=== PATIENT | male | born 1985 | race Caucasian/White ===

== ENCOUNTER 2020-05-30 14:52 | Emergency (ER) | payer OTHER ==
[~2020-05-30] VITALS: Ht 167.6 cm; Wt 75.3 kg
[2020-05-30 14:59] VITALS: Ht 167.6 cm; Wt 75.3 kg
[2020-05-30 15:48] LABS: BASOPHIL % 2.3 % (0-2); PLATELET COUNT 418 x10^3mcL (130-400)
[2020-05-30 15:52] LABS: CALCIUM 7.8 mg/dL (8.5-10.1); CARBON DIOXIDE 26.8 mmol/L (21-32); CHLORIDE SERUM 104 mmol/L (98-107); CREATININE SERUM 0.9 mg/dL (0.7-1.3); GFR1 > 60 mL/min; GLUCOSE SERUM 127 mg/dL (74-106); POTASSIUM SERUM 3.4 mmol/L (3.5-5.1); SODIUM SERUM 144 mmol/L (136-145)
[2020-05-30 15:57] LABS: ALKALINE PHOSPHATASE 60 U/L (46-116); ALT/SGPT 135 U/L (16-63); AST/SGOT 109 U/L (15-37); BILIRUBIN TOTAL 0.5 mg/dL (0.20-1.00); TOTAL PROTEIN, SERUM 7.6 g/dL (6.4-8.2)
[2020-05-30 17:02] LABS: microscopic required? YES; urine erythrocyte NEGATIVE (NEGATIVE)
[2020-05-30 17:06] VITALS: BP 138/88
[2020-05-30 17:17] LABS: AMPHETAMINE QUAL UR NONE DETECTED (See below)
== END 2020-05-30 17:06 | disposition home or self-care (01) ==
LOC: ED 14:52
PROVIDERS: Emergency Medicine
DX: F41.9 Anxiety disorder, unspecified (principal); R20.2 Paresthesia of skin
CPT/HCPCS: J7030; Q0092